=== PATIENT | female | born 1970 | race Caucasian/White ===

== ENCOUNTER 2023-07-25 14:59 | Emergency (ER) | payer BC ==
[2023-07-25 15:08] VITALS: PULSE 72
[2023-07-25] MEDS: traMADol 50 MG Tab PO ONE (15:17)
[2023-07-25] MEDS: Ketorolac 30 MG/ML SDV IM ONE (15:21)
[2023-07-25 15:35] LABS: BASOPHILS ABSOLUTE AUTO 0.03 K/uL (0.00-0.20); BASOPHILS PERCENT AUTO 0.4 % (0.0-2.0); EOSINOPHILS ABSOLUTE AUTO 0.11 K/uL (0.00-0.50); EOSINOPHILS PERCENT AUTO 1.6 % (0.0-5.0); HEMATOCRIT 40.8 % (34.0-46.0); HEMOGLOBIN 13.4 g/dL (11.7-15.5); LYMPHOCYTES ABSOLUTE AUTO 2.22 K/uL (0.50-3.50); LYMPHOCYTES PERCENT AUTO 31.4 % (10.0-50.0); MEAN CORPUSCULAR HEMOGLOBIN 30.7 pg (28.2-33.3); MEAN CORPUSCULAR HGB CONC 32.8 g/dL (31.7-36.0); MEAN CORPUSCULAR VOLUME 93.6 fL (84.0-98.0); MONOCYTES ABSOLUTE AUTO 0.54 K/uL (0.00-1.00); MONOCYTES PERCENT AUTO 7.6 % (2.0-14.0); NEUTROPHILS ABSOLUTE AUTO 4.18 K/uL (1.40-7.00); PLATELET COUNT,PLT 289 K/uL (150-350); RED BLOOD CELL COUNT 4.36 M/uL (3.77-5.09); RED CELL DISTRIBUTION WIDTH 13.9 % (11.2-14.1); WHITE BLOOD CELL COUNT,WBC 7.1 K/uL (4.0-10.2)
[2023-07-25 15:43] VITALS: BP 123/77
[2023-07-25 15:48] LABS: ANION GAP 10.3 meq/L (7-15); BLOOD UREA NITROGEN,BUN 17 mg/dL (7-18); CALCIUM 9.2 mg/dL (8.5-10.1); CARBON DIOXIDE,CO2 25.7 mmol/L (21.0-32.0); CHLORIDE,CL 104 mmol/L (98-107); CREATININE 0.93 mg/dL (0.51-1.17); GLUCOSE RANDOM 118 mg/dL (70-99); SODIUM,NA 140 mmol/L (136-145)
[2023-07-25 15:52] LABS: ESTIMATED GFR 73 mL/min (>=60)
[2023-07-25 16:10] LABS: APPEARANCE,URINE CLEAR; BILIRUBIN,URINE NEGATIVE (NEGATIVE); COLOR,URINE YELLOW; GLUCOSE,URINE NEGATIVE (NEGATIVE); KETONES,URINE NEGATIVE (NEGATIVE); LEUKOCYTE ESTERASE,URINE NEGATIVE (NEGATIVE); NITRITE,URINE NEGATIVE (NEGATIVE); OCCULT BLOOD,URINE TRACE-LYSED (NEGATIVE); PH,URINE 5.5 (5.0-9.0); PROTEIN,URINE NEGATIVE (NEGATIVE); UROBILINOGEN,URINE 0.2 E.U./dL (0.2-1.0)
[2023-07-25 16:18] LABS: BACTERIA,URINE FEW /HPF (NONE TO FEW); EPITHELIAL CELLS,URINE FEW /LPF; MUCUS,URINE OCCASIONAL /LPF (NEGATIVE); RBC,URINE 0-5 /HPF; WBC,URINE NOT SEEN /HPF
[2023-07-25] MEDS: predniSONE 20 MG Tab PO ONE (16:27)
[2023-07-25] MEDS: Ondansetron 4 MG Tab.DIS PO ONE (16:27)
[2023-07-25] MEDS: Take Home: traMADol 50 MG, 4 Tab Pack PO ONE (16:41)
== END 2023-07-25 16:35 | disposition home or self-care (01) ==
LOC: LL.ED 14:59
DX: M25.551 Pain in right hip (principal); Z79.899 Other long term (current) drug therapy; Z88.5 Allergy status to narcotic agent; Z88.8 Allergy status to other drugs, medicaments and biological substances
CPT/HCPCS: 36415; 72100; 80048; 81001; 85025; 96372; 99283; A9270-GY; J1885; J7512

== ENCOUNTER 2023-12-31 03:09 | Emergency (ER) | payer BC ==
[2023-12-31] MEDS: Diltiazem 25 MG/5 ML SDV IVPUSH ONE ×2 (03:36→03:54)
[2023-12-31] MEDS: Sodium Chloride 0.9% 10 ML Syringe FLUSH PRN (03:37)
[2023-12-31 03:49] LABS: BASOPHILS ABSOLUTE AUTO 0.06 K/uL (0.00-0.20); BASOPHILS PERCENT AUTO 0.7 % (0.0-2.0); EOSINOPHILS ABSOLUTE AUTO 0.19 K/uL (0.00-0.50); EOSINOPHILS PERCENT AUTO 2.2 % (0.0-5.0); HEMATOCRIT 44.3 % (34.0-46.0); HEMOGLOBIN 14.8 g/dL (11.7-15.5); LYMPHOCYTES ABSOLUTE AUTO 3.79 K/uL (0.50-3.50); LYMPHOCYTES PERCENT AUTO 44.8 % (10.0-50.0); MEAN CORPUSCULAR HEMOGLOBIN 30.3 pg (28.2-33.3); MEAN CORPUSCULAR HGB CONC 33.4 g/dL (31.7-36.0); MEAN CORPUSCULAR VOLUME 90.8 fL (84.0-98.0); MONOCYTES ABSOLUTE AUTO 0.89 K/uL (0.00-1.00); MONOCYTES PERCENT AUTO 10.5 % (2.0-14.0); NEUTROPHILS ABSOLUTE AUTO 3.53 K/uL (1.40-7.00); NEUTROPHILS PERCENT AUTO 41.8 % (45.0-80.0); PLATELET COUNT,PLT 290 K/uL (150-350); RED BLOOD CELL COUNT 4.88 M/uL (3.77-5.09); RED CELL DISTRIBUTION WIDTH 14.5 % (11.2-14.1); WHITE BLOOD CELL COUNT,WBC 8.5 K/uL (4.0-10.2)
[2023-12-31 04:14] LABS: ALANINE AMINOTRANSFERASE,ALT 32 U/L (12-78); ALBUMIN 3.9 g/dL (3.4-5.0); ALKALINE PHOSPHATASE 70 IU/L (46-116); ASPARTATE AMNIOTRANSFERASE,AST 21 U/L (15-37); BLOOD UREA NITROGEN,BUN 15 mg/dL (7-18); CARBON DIOXIDE,CO2 20.8 mmol/L (21.0-32.0); CHLORIDE,CL 104 mmol/L (98-107); CREATININE 0.83 mg/dL (0.51-1.17); GLUCOSE RANDOM 115 mg/dL (70-99); MAGNESIUM 1.8 mg/dL (1.8-2.4); POTASSIUM,K 3.4 mmol/L (3.5-5.1); PROTEIN TOTAL,TP 7.6 g/dL (6.4-8.2); SODIUM,NA 139 mmol/L (136-145)
[2023-12-31 04:15] LABS: ANION GAP 17.6 meq/L (7-15); ESTIMATED GFR 84 mL/min (>=60)
[2023-12-31] MEDS: Sodium Chloride 0.9% 1,000 ML IV ONE (04:44)
[2023-12-31] MEDS: Diltiazem 125 MG in Sodium Chloride 0.9% 100 ML IV SCH (04:45)
== END 2023-12-31 06:00 ==
LOC: LL.ED 03:09
DX: I48.91 Unspecified atrial fibrillation (principal); Z90.49 Acquired absence of other specified parts of digestive tract; Z88.8 Allergy status to other drugs, medicaments and biological substances; Z88.5 Allergy status to narcotic agent
CPT/HCPCS: 36415; 71045; 80053; 83605; 83735; 84443; 84484; 85025; 93005; 96365; 96376; 99285-25; J3490; J7030

== ENCOUNTER 2025-06-18 17:24 | Emergency (ER) | payer BC | END 2025-06-18 17:45 | disposition home or self-care (01) | LOC: LL.ED 17:24 | DX: S90.851A Superficial foreign body, right foot, initial encounter (principal); Z88.5 Allergy status to narcotic agent; Z88.8 Allergy status to other drugs, medicaments and biological substances; Z90.49 Acquired absence of other specified parts of digestive tract; W45.8XXA Other foreign body or object entering through skin, initial encounter; W25.XXXA Contact with sharp glass, initial encounter | CPT/HCPCS: 28190; 99283; J2003 ==